=== PATIENT | male | born 1975 | race American Indian/Alaskan Native ===

== ENCOUNTER 2017-06-11 08:04 | Outpatient (CLI) | payer OTHER ==
--- NOTE | 2017-06-11 12:44 | Cat Scan Report ---
CT scan of the chest: Patient with history of partial colectomy for cancer. PET scan at outside facility in January 2017 identified 7 mm left lower lobe pulmonary nodule with no significant uptake. Comparison is also made to our PET scan 2011. Following IV contrast administration transverse images are obtained from the thoracic inlet to the upper abdomen. Coronal and sagittal 2-D reformatted images included. No significant chest wall, hilar, or mediastinal adenopathy identified. The central airways are patent. The pulmonary vessels are moderately opacified with no filling defects. An irregular shaped opacity is identified in the lingula segment of the left upper lobe just above the diaphragm. The rounded component measures 8 mm which would be consistent with the recent PET scan port however there is a linear component on our scan giving a total dimension of 17 mm. On the coronal and sagittal reformatted images this finding appears more linear than round. This linear component was not previously described. No other pulmonary nodules and no pleural abnormalities are identified. Images obtained during the vascular phase also demonstrate a 3 cm hyperdense mass in the posterior medial right lobe of the liver. This was not described on the CT or PET component of the recent PET scan. Our prior scan also fails to clearly identify this finding. Of note is that during the delay images of the current CT the liver becomes homogeneous and this lesion is no longer identified. Impression: 1. The left pulmonary pulmonary nodule/opacity was not identified in 2012. It also appears to have a different contour and size than described on recent PET scan in January 2017. This finding is considered suspicious since it is new but has an unusual configuration for malignancy. The lesion is too small for image guided biopsy. 2. The enhancing liver lesion most likely represents an hemangioma however confirmation with a RBC tagged nuclear liver scan would confirm this.
== END 2017-06-11 08:05 | disposition home or self-care (01) ==
LOC: SPVIMAG 08:04
PROVIDERS: ATTEND Internal Medicine Hematology & Oncology
DX: R91.1 Solitary pulmonary nodule (principal); K76.89 Other specified diseases of liver; Z85.038 Personal history of other malignant neoplasm of large intestine; Z90.49 Acquired absence of other specified parts of digestive tract
CPT/HCPCS: 71260; Q9967